=== PATIENT | female | born 1960 | race Caucasian/White ===

== ENCOUNTER 2017-02-15 10:28 | Emergency (ER) | payer BC, OTHER ==
[~2017-02-15] VITALS: Ht 162.6 cm; Wt 68.0 kg
[2017-02-15 10:28] VITALS: BP 102/66
[2017-02-15] MEDS ORDERED: TDAP [DIPH/PERTUSSIS/TET] 0.5 ML VIAL IM ONE ×2 (12:00→12:09)
== END 2017-02-15 12:17 | disposition home or self-care (01) ==
LOC: ER 10:38
DX: S51.852A Open bite of left forearm, initial encounter (principal); E03.9 Hypothyroidism, unspecified; W54.0XXA Bitten by dog, initial encounter; Y92.89 Other specified places as the place of occurrence of the external cause; Y93.89 Activity, other specified; Y99.8 Other external cause status
CPT/HCPCS: 90471; 90715; 99283; A4606; A6402; Z7610